=== PATIENT | male | born 1970 | race Caucasian/White ===

== ENCOUNTER 2016-11-03 10:36 | Emergency (ER) | payer SELFPAY ==
--- NOTE | 2016-11-03 14:24 | DIAGNOSTIC IMAGING REPORT ---
PROCEDURE: US SCROTUM/TESTICLE INDICATION: SCROTAL MASS TECHNIQUE: Veras scale and color Doppler sonographic images through the scrotum were obtained. COMPARISON: None. FINDINGS: Extending from the proximal scrotal skin into the peroneal body, there is an ill-defined heterogeneous, hypoechoic avascular fluid collection/phlegmonous mass measuring approximately 3.3 x 2.3 by about 5.9 cm. This begins immediately below the skin surface. There is significant left scrotal wall thickening. The right testicle measures 3.9 x 1.8 x 2.6 cm and the left measures 3.6 x 1.7 x 1.2 cm. Both testicles demonstrate homogeneous echotexture without solid mass, cyst, or numerous microcalcifications. Occasional right testicular microcalcifications. Color Doppler imaging demonstrates normal and symmetric arterial and venous testicular flow. No suspicious hyperemia. The epididymi are normal in size, echotexture, and vascularity. Very small bilateral hydrocele. IMPRESSION: 1. Normal testicles and epididymi. 2. Left scrotal cellulitis with extension into the peroneal body and probable phlegmon/abscess involving the peroneal body. CT will be performed to determine the full extent of cellulitis. 3. Discussed with emergency room provider.
--- NOTE | 2016-11-03 17:03 | DIAGNOSTIC IMAGING REPORT ---
PROCEDURE: CT PELVIS WITH CONTRAST INDICATION: PELVIC PAIN TECHNIQUE: 125 ml Isovue 300 IV contrast was administered without complication. Axial CT images through the pelvis were obtained with coronal and sagittal reformations created. COMPARISON: Ultrasound performed the same day. FINDINGS: There is mild inflammation and a focal tubular fluid collection measuring about 4.5 x 0.9 x 1.3 cm in the dorsal subcutaneous superficial soft tissues at the base of the scrotum just to the left of midline. Moderate fat stranding extends slightly cranially into the adjacent fat. There is at least 4 cm of fat between the abscess and pelvic floor musculature with the patient in position for the scan. No evidence of subcutaneous gas. Mild left scrotal sac subcutaneous edema. Testicles otherwise appear normal. Pelvic floor appears intact without induration/inflammation. Prostate gland, seminal vesicles, and distended urinary bladder appear normal. Pelvic small bowel loops are normal. The appendix was not visualized. Pelvic vessels are unremarkable. No free pelvic fluid. Osseous structures are intact with sacralization of left L5 transverse process. IMPRESSION: 1. Left scrotal cellulitis with small abscess. 2. Discussed with Dr. Cuadra in the emergency room.
--- NOTE | 2016-11-03 17:17 | ED ORDER SUMMARY ---
..... Patient: MADINA AMARO OrderSheet [facility] VisitID: [id number] [address] [place] [address] 46y, M Registration Date/Time: 11/03/2016 ORDER SHEET Weight: 86.1 kg (stated) Allergies: No Known Drug Allergy GENERAL ORDERS: US Scrotum/Testicular Urgent (11:20 11/03/2016 Pratik CHEEMA) (Ack 11:23 Juanjose) (12:47 SReitz R.N.) CT Abd/Pel w Cont (No) (pending) (perineal abscess. ) Urgent (13:11 11/03/2016 Pratik CHEEMA) (Ack 13:19 Juanjose) (14:46 MWinterer R.N.) CBC w Diff Urgent (13:12 11/03/2016 Pratik CHEEMA) (Ack 13:19 Juanjose) (13:33 MWinterer R.N.) BMP Urgent (13:12 11/03/2016 Pratik CHEEMA) (Ack 13:19 Juanjose) (13:33 MWinterer R.N.) CT Pelvis w Cont (13:47 11/03/2016 Juanjose verbal order read back to Pratik CHEEMA) (Ack 13:58 Juanjose) (14:46 MWinterer R.N.) Culture, Wound Deep (Groin) (swab) Urgent (17:06 11/03/2016 Pratik CHEEMA) (17:09 SReitz R.N.) Dress Wounds (17:11/03/2016 Pratik CHEEMA) (17:44 SReitz R.N.) MEDICATION ORDERS: IV FLUIDS: IV NS : initial bolus none -, then 250 mL/hr for 4h (NOW); Routine (13:10 11/03/2016 Pratik CHEEMA) (Ack 13:13 SRobershell R.N.) (13:34 MWinterer R.N.) Dilaudid IV 0.5 mg (NOW) (13:11/03/2016 Pratik CHEEMA) (Ack 13:13 Ziyad R.N.) (13:34 MWinterer R.N.) Zofran IV 4 mg (NOW) (13:10 11/03/2016 Pratik CHEEMA) (Ack 13:13 Ziyad Perez) (13:35 Heena Perez) Vancomycin IV 25 mg/kg (NOW) (16:46 11/03/2016 Pratik CHEEMA) (Ack 17:01 Rodney Perez) (17:12 Rodney Perez) ORDER SHEET NOTES: [Electronically signed by Lyla Bourgeois R.N. (19:52 11/03/2016)] [Electronically signed by Will Cuadra MD (20:53 11/04/2016)] [Electronically locked/signed by Lyla Bourgeois R.N. (19:52 11/03/2016)]
--- NOTE | 2016-11-03 17:17 | ED ORDER SUMMARY ---
..... Patient: MADINA AMARO OrderSheet [facility] VisitID: [id number] [address] [place] [address] 46y, M Registration Date/Time: 11/03/2016 ORDER SHEET Weight: 86.1 kg (stated) Allergies: No Known Drug Allergy GENERAL ORDERS: US Scrotum/Testicular Urgent (11:20 11/03/2016 Pratik CHEEMA) (Ack 11:23 Juanjose) (12:47 SReitz R.N.) CT Abd/Pel w Cont (No) (pending) (perineal abscess. ) Urgent (13:11 11/03/2016 Pratik CHEEMA) (Ack 13:19 Juanjose) (14:46 MWinterer R.N.) CBC w Diff Urgent (13:12 11/03/2016 Pratik CHEEMA) (Ack 13:19 Juanjose) (13:33 MWinterer R.N.) BMP Urgent (13:12 11/03/2016 Pratik CHEEMA) (Ack 13:19 Juanjose) (13:33 MWinterer R.N.) CT Pelvis w Cont (13:47 11/03/2016 Juanjose verbal order read back to Pratik CHEEMA) (Ack 13:58 Juanjose) (14:46 MWinterer R.N.) Culture, Wound Deep (Groin) (swab) Urgent (17:06 11/03/2016 Pratik CHEEMA) (17:09 SReitz R.N.) Dress Wounds (17:11/03/2016 Pratik CHEEMA) (17:44 SReitz R.N.) MEDICATION ORDERS: IV FLUIDS: IV NS : initial bolus none -, then 250 mL/hr for 4h (NOW); Routine (13:10 11/03/2016 Pratik CHEEMA) (Ack 13:13 SRobershell R.N.) (13:34 MWinterer R.N.) Dilaudid IV 0.5 mg (NOW) (13:11/03/2016 Pratik CHEEMA) (Ack 13:13 Ziyad R.N.) (13:34 MWinterer R.N.) Zofran IV 4 mg (NOW) (13:10 11/03/2016 Pratik CHEEMA) (Ack 13:13 Ziyad Perez) (13:35 Heena Perez) Vancomycin IV 25 mg/kg (NOW) (16:46 11/03/2016 Pratik CHEEMA) (Ack 17:01 Rodney Perez) (17:12 Rodney Perez) ORDER SHEET NOTES: [Electronically signed by Lyla Bourgeois R.N. (19:52 11/03/2016)] [Electronically signed by Will Cuadra MD (20:53 11/04/2016)] [Electronically locked/signed by Lyla Bourgeois R.N. (19:52 11/03/2016)]
--- NOTE | 2016-11-03 17:17 | ED CLINICAL REPORT ---
Clinical Report - Physicians/Mid Levels [facility] [address] [place] [address] 11/03/2016 10:38 Patient: MADINA AMARO Time Seen: 11:16 Nov 03 2016. Arrived- By private vehicle. Historian- patient. CPT: ER phys charges level 4 plus (#[id number]). HISTORY OF PRESENT ILLNESS Chief Complaint: LESION. This started about 5 days PATROL CONDUCTOR and is still present. It is described as painful. It has been located on the scrotum and perineum. No cause has been identified. (Started as a pimple.). Similar symptoms previously: None. Recent medical care: Not recently seen/assessed. REVIEW OF SYSTEMS No fever, chills, sore throat, cough or difficulty breathing. No chest pain, abdominal pain, nausea, diarrhea or joint pain. All systems otherwise negative, except as recorded above. PAST HISTORY Allergic Rhinitis. ADDITIONAL SURGERIES: Appendectomy. Medications: None. Allergies: No Known Drug Allergy. SOCIAL HISTORY Never smoker. No alcohol use or drug use. ADDITIONAL NOTES The nursing notes have been reviewed. PHYSICAL EXAM Vital Signs: 11/03/2016 10:44 BP: 141/90. HR: 102. RR: 18. O2 saturation: 100%. Temp: 98.8 F. Appearance: Alert. Patient in mild distress. Eyes: Conjunctivae and eyelids normal. Neck: Neck supple. CVS: Normal heart rate and rhythm. Heart sounds normal. No cardiac murmur. Respiratory: No respiratory distress. Breath sounds normal. Chest nontender. Abdomen: Nontender. Skin: Single medium abscess with fluctuance, pointing and drainage (perineal). Extremities: Extremities nontender. Neuro: Oriented X 3. No motor deficit. No sensory deficit. LABS, X-RAYS, AND EKG Abdominal CT: 1 by 4 cm cylindrical mass consistent with abscess. No penetration into the pelvis. Abdominal CT performed with IV contrast. The study was interpreted by the radiologist and discussed with the radiologist. Scrotal Sonogram: perineal abscess, central. Cannot see the extent as to how deep it goes. Study type: utilized duplex and color Doppler sonography. The exam was performed by a machine technician. The study was independently viewed by me, interpreted by the radiologist and discussed with the radiologist. Laboratory Tests: CBC w Diff: (SWATI: 11/03/2016 13:30) ( MsgRcvd 11/03/2016 13:52) Final results Test Result Flag Units (Reference) WHITE BLOOD COUNT 15.6 H K/uL (4.5-11.5) RED BLOOD COUNT 4.86 M/uL (4.50-5.90) HEMOGLOBIN 15.3 gm/dL (13.5-17.5) HEMATOCRIT 44.8 % (41.0-53.0) MEAN CELL VOLUME 92 fL (80-100) MEAN CORPUSCULAR HGB 31 pg (26-34) MEAN CORPUSCULAR HGB CONC 34 g/dL (31-37) RED CELL DISTRIBUTION WIDTH 12.9 % (11.6-14.8) PLATELET COUNT 409 H K/uL (150-400) NEUTROPHIL % 73.4 % (50-75) LYMPH % 16.7 L % (25-40) MONO % 7.2 % (3-14) EOSINOPHIL % 0.5 % (0-4) BASOPHIL % 2.2 H % (0-2) BMP: (SWATI: 11/03/2016 13:30) ( MsgRcvd 11/03/2016 14:08) Final results Test Result Flag Units (Reference) GLUCOSE 116 H mg/dL (70-110) BUN 12 mg/dL (7-18) CREATININE 0.9 mg/dL (0.6-1.3) Estimated GFR >60 mL/min Estimated GFR- >60 mL/min Note: Persistent reduction over 3 months in eGFR<60 mL/min/1.73 m2 defines CKD. Patients with eGFR values>=60 mL/min/1.73 m2 may also have CKD if evidence ofpersistent proteinuria. Additional information may be foundat www.kidney.org. SODIUM 143 mmol/L (136-145) POTASSIUM 3.9 mmol/L (3.5-5.1) CHLORIDE 107 mmol/L (98-107) CARBON DIOXIDE 26 mmol/L (21-32) CALCIUM 8.6 mg/dL (8.5-10.1) . PROGRESS AND PROCEDURES Incision & Drainage of Abscess: The abscess is located in the scrotum (perineal). The risks of the procedure, benefits and alternatives were explained. Consent was obtained. Anesthesia provided using 2% lidocaine. Skin cleansed with Betadine. Ultrasound utilized to confirm presence and determine location of abscess. The abscess was incised with a #11 surgical blade. A moderate amount of pus was drained. Cavity was irrigated with saline and packed with gauze. Sample obtained for cultures and gram stain. A dressing was applied. Estimated blood loss: 2 mL. Course of Care: US to evaluate how large and extensive the abscess is . US could not see how deep this lesion went so CT performed to make sure there was no pelvic extension. Zofran 4 mg Iv Dilaudid 0.5 mg IV IV NS Vancomycin 2g IV. Patient/family counseled. Disposition: Discharged. Condition: stable and improved. CLINICAL IMPRESSION Single deep abscess to the genitalia with incision and drainage (perineal). Left scrotal cellulitis. INSTRUCTIONS Protect wound and keep wound area clean. Leave dressing in place until seen in follow-up. Keep wounds dry. Do not work for four days until released. Warnings: Further evaluation is necessary. Prescription Medications: Hydrocodone/APAP 5mg/325mg: take 1 to 2 orally every 6 hours as needed for pain. Dispense fifteen (15). No refills. Bactrim DS 800 mg / 160 mg: take 1 tablet orally every 12 hours for 10 days. No refill. Keflex 500 mg: take 2 capsules orally every 12 hours for 10 days. No refill. Follow-up: Return to the emergency department Friday in two days for wound check. Understanding of the discharge instructions verbalized by patient and family. Discharge instructions reviewed with and understanding was verbalized by spouse. Follow-up with: [facility], , , [address], [place], [id number] Follow up in two days. Call for the next available appointment. Reason for referral: assess wound and packing. (Electronically signed by Will Cuadra MD 11/04/2016 20:53)
--- NOTE | 2016-11-03 17:17 | ED NURSING NOTES ---
Clinical Report - Nurses [facility] [address] [place] [address] 11/03/2016 10:38 Patient: MADINA AMARO TRIAGE Triage time 10:44. Acuity: LEVEL 4. Chief Complaint: SKIN LESION. Alert. No acute distress. SEPSIS SCREEN: Sepsis Screen. Negative (no infection suspected/documented). YOAN COMA SCORE: [place] Coma Scale: 15- eyes open spontaneously (4); best verbal response- oriented x 4 (5); best motor response- obeys commands (6). --10:48 Daysi Jennings R.N. 10:44 11/03/16. BP: 141/90. HR: 102. RR: 18. O2 saturation: 100%. Temp: 98.8 F. Pain level now 03/03. --10:48 Daysi Jennings R.N. Weight: 86.1 kg stated. Height/Length: 66 inches Per Patient. BMI: 30.7. --10:45 Daysi Jennings R.N. Medications None. --10:46 Daysi Jennings R.N. Allergies No Known Drug Allergy. --10:46 Daysi Jennings R.N. History Arrived by private vehicle. Historian: patient. Accompanied by spouse. Primary physician (none). Reported as (groin). Onset. (5 days ago). Treatment RESISTOR TESTER: None. PAST MEDICAL HX: Immunizations: (not up to date). SOCIAL HX: Light tobacco smoker (cigarette)- less than 1/2 a pack per day. Occasional alcohol use. (weekends). No drug use. No infectious disease exposure. ABUSE ASSESSMENT: Abuse assessment: The patient was asked "Do you feel safe in your home?" and "Has anyone hurt you or threatened to hurt you?". No report of abuse. SELF HARM ASSESSMENT: A self harm assessment was performed. The patient answered "no" to the question "Do you have thoughts of harming or killing yourself?" and "Have you recently had thoughts about harming or killing others?". NUTRITIONAL RISK ASSESSMENT: The nutritional risk assessment revealed no deficiencies. FUNCTIONAL ASSESSMENT: Functional assessment: no impairments noted. LEARNING NEEDS ASSESSMENT: The learning needs assessment revealed no barriers. --10:48 Daysi Jennings R.N. PROBLEMS: Allergic Rhinitis. --10:46 Daysi Jennings R.N. ADDITIONAL SURGERIES: Appendectomy. --10:46 Daysi Jennings R.N. Interventions ID band on patient. Ambulatory. --10:48 Daysi Jennings R.N. PHYSICAL ASSESSMENT Ambulatory to room. GENERAL / NEURO / PSYCH: Alert. The patient does not appear to be in acute distress. --10:47 Daysi Jennings R.N. NURSING PROGRESS NOTES Patient gowned. Head of bed elevated. Two patient identifiers checked. Call light placed in reach. Side rails up x 2. Bed placed in lowest position. Brakes of bed on. Patient ready for evaluation- chart flagged. --10:47 Daysi Jennings R.N. ( US at the bedside for exam.). --12:29 Daysi Jennings R.N. 12:45 11/03/16. BP: 135/76. HR: 90. RR: 15. O2 saturation: 98%. --12:45 Daysi Jennings R.N. 13:23 11/03/2016 Site #1 started via IV in the right antecubital space with an 20g angiocath, with aseptic technique and good blood return; one attempt. Blood drawn: rainbow set. Labeled in the presence of the patient and sent to the lab. --13:33 Tarah Brunson R.N. 13:29 11/03/2016 Started bag #1 1000 mL IV Fluids IV NS (Saline); at 999 mL/hr over 1 hour(s) via site #1 via IV pump. Allergies verified and confirmed 5 rights. IV patency established. IV site checked: no pain, redness, or swelling. IV flushed thoroughly pre- and post-medication administration. --13:34 Tarah Brunson R.N. 13:29 11/03/2016 Dilaudid (HYDROmorphone HCl PF) IVP 0.5 mg given over 1 minute(s) via site #1. Allergies verified, confirmed 5 rights and sedative warning given to the patient. IV patency established. IV site checked: no pain, redness, or swelling. IV flushed thoroughly pre- and post-medication administration. IVP given by RN. --13:34 Tarah Brunson R.N. 13:30 11/03/2016 Zofran (Ondansetron HCl) IVP 4 mg given over 1 minute(s) via site #1. Allergies verified and confirmed 5 rights. IV patency established. IV site checked: no pain, redness, or swelling. IV flushed thoroughly pre- and post-medication administration. IVP given by RN. --13:35 Tarah Brunson R.N. 14:00 11/03/2016 Dilaudid IVP Response: no adverse reaction pain is improving. --14:07 Daysi Jennings R.N. 14:06 11/03/16. BP: 129/82. HR: 85. RR: 15. O2 saturation: 97%. Pain level now 2/10. --14:08 Daysi Jennings R.N. Patient informed about reason for wait. --14:08 Daysi Jennings R.N. 15:59 11/03/16. BP: 122/83. HR: 83. RR: 15. O2 saturation: 96%. --16:00 Daysi Jennings R.N. 17:12 11/03/2016 Started 1 gm of Vancomycin IVPB in bag #1 200 mL; at 200 mL/hr over 1 hour(s) via site #1 via IV pump. Allergies verified and confirmed 5 rights. IV patency established. IV site checked: no pain, redness, or swelling. IV flushed thoroughly pre- and post-medication administration. --17:12 Daysi Jennings R.N. 17:00. I & D: Incision and Drainage of abscess performed by ED physician. Assisted by one nurse. Preparation: Incision and Drainage tray set up. Post-procedure: he was stable. Total time of assist / procedure: 15 minutes. --17:12 Daysi Jennings R.N. <<STRICKEN ENTRY-- 18:20 11/03/2016 Vancomycin IVPB Discontinued: bag #1 infused. Total amount infused: 200 mL. --18:22 Daysi Jennings R.N. --END STRIKE>> Other. --18:22 Daysi Jennings R.N. 18:20 11/03/2016 Vancomycin IVPB Discontinued: bag #1 infused. Total amount infused: 200 mL. IV patency established. IV site checked: no pain, redness, or swelling. IV flushed thoroughly. --18:22 Daysi Jennings R.N. 18:22 11/03/2016 Started 1 gm of Vancomycin IVPB in bag #1 200 mL; at 200 mL/hr over 1 hour(s) via site #1 via IV pump. Allergies verified and confirmed 5 rights. IV patency established. IV site checked: no pain, redness, or swelling. IV flushed thoroughly pre- and post-medication administration. --18: Daysi Jennings R.N. 18:23 11/03/16. BP: 121/76. HR: 90. RR: 16. O2 saturation: 97%. --18:24 Daysi Jennings R.N. 19:05 11/03/16. Care transferred and report received. --19:05 Lyla Bourgeois R.N. DISPOSITION / DISCHARGE 19:29 11/03/16. Condition at departure: improved. No learning barriers present. Discharge instructions provided and reviewed with the patient and spouse. Reviewed medication(s) information. Prescription(s) given to the patient. Reviewed referral to family practice for followup. Verbalized understanding. Written instructions provided. The patient was discharged home and accompanied by spouse. He left the Emergency Department ambulatory and via private vehicle. Spouse driving. --19:29 Lyla Bourgeois R.N. 19:28 11/03/16. BP: 120/74. HR: 85. RR: 18. O2 saturation: 99%. --19:29 Lyla Bourgeois R.N. Locked/Released at 11/03/2016 19:52 by Lyla Bourgeois R.N.
--- NOTE | 2016-11-03 17:17 | ED CLINICAL REPORT ---
Clinical Report - Physicians/Mid Levels [facility] [address] [place] [address] 11/03/2016 10:38 Patient: MADINA AMARO Time Seen: 11:16 Nov 03 2016. Arrived- By private vehicle. Historian- patient. CPT: ER phys charges level 4 plus (#[id number]). HISTORY OF PRESENT ILLNESS Chief Complaint: LESION. This started about 5 days CLINICAL INFORMATICS SPEC and is still present. It is described as painful. It has been located on the scrotum and perineum. No cause has been identified. (Started as a pimple.). Similar symptoms previously: None. Recent medical care: Not recently seen/assessed. REVIEW OF SYSTEMS No fever, chills, sore throat, cough or difficulty breathing. No chest pain, abdominal pain, nausea, diarrhea or joint pain. All systems otherwise negative, except as recorded above. PAST HISTORY Allergic Rhinitis. ADDITIONAL SURGERIES: Appendectomy. Medications: None. Allergies: No Known Drug Allergy. SOCIAL HISTORY Never smoker. No alcohol use or drug use. ADDITIONAL NOTES The nursing notes have been reviewed. PHYSICAL EXAM Vital Signs: 11/03/2016 10:44 BP: 141/90. HR: 102. RR: 18. O2 saturation: 100%. Temp: 98.8 F. Appearance: Alert. Patient in mild distress. Eyes: Conjunctivae and eyelids normal. Neck: Neck supple. CVS: Normal heart rate and rhythm. Heart sounds normal. No cardiac murmur. Respiratory: No respiratory distress. Breath sounds normal. Chest nontender. Abdomen: Nontender. Skin: Single medium abscess with fluctuance, pointing and drainage (perineal). Extremities: Extremities nontender. Neuro: Oriented X 3. No motor deficit. No sensory deficit. LABS, X-RAYS, AND EKG Abdominal CT: 1 by 4 cm cylindrical mass consistent with abscess. No penetration into the pelvis. Abdominal CT performed with IV contrast. The study was interpreted by the radiologist and discussed with the radiologist. Scrotal Sonogram: perineal abscess, central. Cannot see the extent as to how deep it goes. Study type: utilized duplex and color Doppler sonography. The exam was performed by a maintenance shop technician. The study was independently viewed by me, interpreted by the radiologist and discussed with the radiologist. Laboratory Tests: CBC w Diff: (SWATI: 11/03/2016 13:30) ( MsgRcvd 11/03/2016 13:52) Final results Test Result Flag Units (Reference) WHITE BLOOD COUNT 15.6 H K/uL (4.5-11.5) RED BLOOD COUNT 4.86 M/uL (4.50-5.90) HEMOGLOBIN 15.3 gm/dL (13.5-17.5) HEMATOCRIT 44.8 % (41.0-53.0) MEAN CELL VOLUME 92 fL (80-100) MEAN CORPUSCULAR HGB 31 pg (26-34) MEAN CORPUSCULAR HGB CONC 34 g/dL (31-37) RED CELL DISTRIBUTION WIDTH 12.9 % (11.6-14.8) PLATELET COUNT 409 H K/uL (150-400) NEUTROPHIL % 73.4 % (50-75) LYMPH % 16.7 L % (25-40) MONO % 7.2 % (3-14) EOSINOPHIL % 0.5 % (0-4) BASOPHIL % 2.2 H % (0-2) BMP: (SWATI: 11/03/2016 13:30) ( MsgRcvd 11/03/2016 14:08) Final results Test Result Flag Units (Reference) GLUCOSE 116 H mg/dL (70-110) BUN 12 mg/dL (7-18) CREATININE 0.9 mg/dL (0.6-1.3) Estimated GFR >60 mL/min Estimated GFR- >60 mL/min Note: Persistent reduction over 3 months in eGFR<60 mL/min/1.73 m2 defines CKD. Patients with eGFR values>=60 mL/min/1.73 m2 may also have CKD if evidence ofpersistent proteinuria. Additional information may be foundat [email or web address].org. SODIUM 143 mmol/L (136-145) POTASSIUM 3.9 mmol/L (3.5-5.1) CHLORIDE 107 mmol/L (98-107) CARBON DIOXIDE 26 mmol/L (21-32) CALCIUM 8.6 mg/dL (8.5-10.1) . PROGRESS AND PROCEDURES Incision & Drainage of Abscess: The abscess is located in the scrotum (perineal). The risks of the procedure, benefits and alternatives were explained. Consent was obtained. Anesthesia provided using 2% lidocaine. Skin cleansed with Betadine. Ultrasound utilized to confirm presence and determine location of abscess. The abscess was incised with a #11 surgical blade. A moderate amount of pus was drained. Cavity was irrigated with saline and packed with gauze. Sample obtained for cultures and gram stain. A dressing was applied. Estimated blood loss: 2 mL. Course of Care: US to evaluate how large and extensive the abscess is . US could not see how deep this lesion went so CT performed to make sure there was no pelvic extension. Zofran 4 mg Iv Dilaudid 0.5 mg IV IV NS Vancomycin 2g IV. Patient/family counseled. Disposition: Discharged. Condition: stable and improved. CLINICAL IMPRESSION Single deep abscess to the genitalia with incision and drainage (perineal). Left scrotal cellulitis. INSTRUCTIONS Protect wound and keep wound area clean. Leave dressing in place until seen in follow-up. Keep wounds dry. Do not work for four days until released. Warnings: Further evaluation is necessary. Prescription Medications: Hydrocodone/APAP 5mg/325mg: take 1 to 2 orally every 6 hours as needed for pain. Dispense fifteen (15). No refills. Bactrim DS 800 mg / 160 mg: take 1 tablet orally every 12 hours for 10 days. No refill. Keflex 500 mg: take 2 capsules orally every 12 hours for 10 days. No refill. Follow-up: Return to the emergency department Friday in two days for wound check. Understanding of the discharge instructions verbalized by patient and family. Discharge instructions reviewed with and understanding was verbalized by spouse. Follow-up with: [facility], , , [address], [place], [id number] Follow up in two days. Call for the next available appointment. Reason for referral: assess wound and packing. (Electronically signed by Will Cuadra MD 11/04/2016 20:53)
--- NOTE | 2016-11-04 20:53 | ED MAR SUMMARY ---
..... Medication Administration Record [facility] [address] [place] [address] Patient: MADINA AMARO Visit ID: [id number] 46y, M Weight: 86.1 kg Height/Length: 66 in BMI: 30.7 ALLERGIES: No Known Drug Allergy Start 13:11/03/2016 Tarah Brunson R.N. Medication Administered: IV NS (SALINE), Dose: IV Fluids over 1 hour(s), Rate: 999 mL/hr, Dispensed: 1000 mL bag, Site: #1 right AC. Medication Ordered: IV NS : initial bolus none -, then 250 mL/hr for 4h (NOW); Routine. Given 13:11/03/2016 Tarah Brunson R.N. Medication Administered: DILAUDID [IVP] (HYDROMORPHONE HCL PF), Dose: 0.5 mg IVP over 1 minute(s), Site: #1 right AC. Medication Ordered: Dilaudid IV 0.5 mg (NOW). Given 13:11/03/2016 Tarah Brunson R.N. Medication Administered: ZOFRAN [IVP] (ONDANSETRON HCL), Dose: 4 mg IVP over 1 minute(s), Site: #1 right AC. Medication Ordered: Zofran IV 4 mg (NOW). Start 17:12 11/03/2016 Daysi Jennings R.N., Stop 18:20 11/03/2016 Daysi Jennings R.N. Medication Administered: VANCOMYCIN [IVPB], Dose: 1 gm IVPB over 1 hour(s), Rate: 200 mL/hr, Dispensed: 200 mL bag, Site: #1 right AC. Medication Ordered: Vancomycin IV 25 mg/kg (NOW). Start 18:22 11/03/2016 Daysi Jennings R.N. Medication Administered: VANCOMYCIN [IVPB], Dose: 1 gm IVPB over 1 hour(s), Rate: 200 mL/hr, Dispensed: 200 mL bag, Site: #1 right AC. Medication Ordered: Vancomycin IV 25 mg/kg (NOW).
--- NOTE | 2016-11-04 20:53 | ED DISCHARGE INSTRUCTIONS ---
Patient: MADINA AMARO General Instructions [facility] VisitID: [id number] [address] [place] [address] 46y, M Registration Date/Time: 11/03/2016 Single deep abscess to the genitalia with incision and drainage (perineal). Left scrotal cellulitis. INSTRUCTIONS Protect wound and keep wound area clean. Leave dressing in place until seen in follow-up. Keep wounds dry. Do not work for four days until released. Warnings: Further evaluation is necessary. Prescription Medications: Hydrocodone/APAP 5mg/325mg: take 1 to 2 orally every 6 hours as needed for pain. Dispense fifteen (15). No refills. Bactrim DS 800 mg / 160 mg: take 1 tablet orally every 12 hours for 10 days. No refill. Keflex 500 mg: take 2 capsules orally every 12 hours for 10 days. No refill. Follow-up: Return to the emergency department Friday in two days for wound check. Understanding of the discharge instructions verbalized by patient and family. Discharge instructions reviewed with and understanding was verbalized by spouse. Follow-up with: [facility], , , [address], , [place], [id number] Follow up in two days. Call for the next available appointment. Reason for referral: assess wound and packing. ADDITIONAL INFORMATION Abscess [Incision & Drainage] An abscess (sometimes called a boil) occurs when bacteria get trapped under the skin and begin to grow. Pus forms inside the abscess as the body responds to the bacteria. An abscess can occur with an insect bite, ingrown hair, blocked oil gland, pimple, cyst, or puncture wound. Treatment of your abscess has required an incision to drain the pus. If the abscess pocket was large, a gauze packing may have been inserted. This will need to be removed and possibly replaced on your next visit. Antibiotics are not required in the treatment of a simple abscess, unless the infection is spreading into the skin around the wound (known as cellulitis). Healing of the wound will take about one to two weeks depending on the size of the abscess. Healthy tissue will grow from the bottom and sides of the opening until it seals over. Home Care: The wound may drain for the first two days. Cover the wound with a clean dry dressing. If the dressing becomes soaked with blood or pus, change it. If a gauze packing was placed inside the abscess cavity, you may be advised to remove it yourself. You may do this in the shower. Once the packing is removed, you should wash the area in the shower or bath 3 to 4 times a day, until the skin opening has closed. If you were prescribed antibiotics, take them as directed until they are all gone. You may use acetaminophen (Tylenol) or ibuprofen (Motrin, Advil) to control pain, unless another pain medicine was prescribed. [ NOTE: If you have liver disease or ever had a stomach ulcer, talk with your doctor before using these medicines.] Follow Up with your doctor as advised by our staff. If a gauze packing was inserted in your wound, it should be removed in 1-2 days. Check your wound every day for the signs of worsening infection listed below. Get Prompt Medical Attention if any of the following occur: Increasing redness or swelling Red streaks in the skin leading away from the wound Increasing local pain or swelling Continued pus draining from the wound two days after treatment Fever of 100.4F (38C) or higher, or as directed by your healthcare provider Cellulitis You have an infection of the skin known as cellulitis. This usually starts with a scrape, cut, insect bite, blister or other opening in the skin which becomes infected. This is a serious condition. It must be watched closely to be sure the infection is not spreading. With antibiotic treatment, the size of the red area will gradually shrink in size until the skin returns to normal. This will take 7-10 days. The red area should never increase in size once the antibiotic medicine has been started. Occasionally, an infection will be resistant to one antibiotic and another one will have to be used. Home Care: 1) Limit the use of the affected part, since excess movement can cause the infection to spread. 2) If the infection is on your leg, walk as little as possible during the first few days of the treatment. Keep your leg elevated while sitting. This will reduce swelling. 3) Take all of the antibiotic medicine exactly as directed until it is gone. Be careful not to miss any doses, especially during the first seven days. Follow Up with your doctor or this facility as directed. Check the infected area daily for the warning signs listed below. Get Prompt Medical Attention if any of the following occur: -- Spreading area of redness -- Increasing swelling or pain -- Appearance of pus or drainage -- Fever over 100.4 F (38.0 C) oral, or over 101.4 F (38.6 C) rectal, after two days on antibiotics Sulfamethoxazole, Trimethoprim Oral tablet What is this medicine? SULFAMETHOXAZOLE; TRIMETHOPRIM or SMX-TMP (suhl fuh meth OK heidy zohl; trye METH oh prim) is a combination of a sulfonamide antibiotic and a second antibiotic, trimethoprim. It is used to treat or prevent certain kinds of bacterial infections. It will not work for colds, flu, or other viral infections. How should I use this medicine? Take this medicine by mouth with a full glass of water. Follow the directions on the prescription label. Take your medicine at regular intervals. Do not take it more often than directed. Do not skip doses or stop your medicine early. Talk to your knitting machine fixer regarding the use of this medicine in children. Special care may be needed. This medicine has been used in children as young as 2 months of age. What side effects may I notice from receiving this medicine? Side effects that you should report to your doctor or health healthcare technician as soon as possible: allergic reactions like skin rash or hives, swelling of the face, lips, or tongue breathing problems fever or chills, sore throat irregular heartbeat, chest pain joint or muscle pain pain or difficulty passing urine red pinpoint spots on skin redness, blistering, peeling or loosening of the skin, including inside the mouth unusual bleeding or bruising unusually weak or tired yellowing of the eyes or skin Side effects that usually do not require medical attention (report to your doctor or health healthcare technician if they continue or are bothersome): diarrhea dizziness headache loss of appetite nausea, vomiting nervousness What may interact with this medicine? Do not take this medicine with any of the following medications: aminobenzoate potassium dofetilide metronidazole This medicine may also interact with the following medications: SOCO inhibitors like benazepril, enalapril, lisinopril, and ramipril cyclosporine digoxin diuretics indomethacin medicines for diabetes methenamine methotrexate phenytoin potassium supplements pyrimethamine sulfinpyrazone tricyclic antidepressants warfarin What if I miss a dose? If you miss a dose, take it as soon as you can. If it is almost time for your next dose, take only that dose. Do not take double or extra doses. Where should I keep my medicine? Keep out of the reach of children. Store at room temperature between 20 to 25 degrees C (68 to 77 degrees F). Protect from light. Throw away any unused medicine after the expiration date. What should I tell my health care provider before I take this medicine? They need to know if you have any of these conditions: anemia asthma being treated with anticonvulsants if you frequently drink alcohol containing drinks kidney disease liver disease low level of folic acid or [id number] dehydrogenase poor nutrition or malabsorption porphyria severe allergies thyroid disorder an unusual or allergic reaction to sulfamethoxazole, trimethoprim, sulfa drugs, other medicines, foods, dyes, or preservatives or trying to get breast-feeding What should I watch for while using this medicine? Tell your doctor or health healthcare technician if your symptoms do not improve. Drink several glasses of water a day to reduce the risk of kidney problems. Do not treat diarrhea with over the counter products. Contact your doctor if you have diarrhea that lasts more than 2 days or if it is severe and watery. This medicine can make you more sensitive to the sun. Keep out of the sun. If you cannot avoid being in the sun, wear protective clothing and use a sunscreen. Do not use sun lamps or tanning beds/booths. Cephalexin Monohydrate Oral tablet What is this medicine? CEPHALEXIN (sef a WILDER in) is a cephalosporin antibiotic. It is used to treat certain kinds of bacterial infections It will not work for colds, flu, or other viral infections. How should I use this medicine? Take this medicine by mouth with a full glass of water. Follow the directions on the prescription label. This medicine can be taken with or without food. Take your medicine at regular intervals. Do not take your medicine more often than directed. Take all of your medicine as directed even if you think you are better. Do not skip doses or stop your medicine early. Talk to your knitting machine fixer regarding the use of this medicine in children. While this drug may be prescribed for selected conditions, precautions do apply. What side effects may I notice from receiving this medicine? Side effects that you should report to your doctor or health healthcare technician as soon as possible: allergic reactions like skin rash, itching or hives, swelling of the face, lips, or tongue breathing problems pain or trouble passing urine redness, blistering, peeling or loosening of the skin, including inside the mouth severe or watery diarrhea unusually weak or tired yellowing of the eyes, skin Side effects that usually do not require medical attention (report to your doctor or health healthcare technician if they continue or are bothersome): gas or heartburn genital or anal irritation headache joint or muscle pain nausea, vomiting What may interact with this medicine? probenecid some other antibiotics What if I miss a dose? If you miss a dose, take it as soon as you can. If it is almost time for your next dose, take only that dose. Do not take double or extra doses. There should be at least 4 to 6 hours between doses. Where should I keep my medicine? Keep out of the reach of children. Store at room temperature between 59 and 86 degrees F (15 and 30 degrees C). Throw away any unused medicine after the expiration date. What should I tell my health care provider before I take this medicine? They need to know if you have any of these conditions: kidney disease stomach or intestine problems, especially colitis an unusual or allergic reaction to cephalexin, other cephalosporins, penicillins, other antibiotics, medicines, foods, dyes or preservatives or trying to get breast-feeding What should I watch for while using this medicine? Tell your doctor or health healthcare technician if your symptoms do not begin to improve in a few days. Do not treat diarrhea with over the counter products. Contact your doctor if you have diarrhea that lasts more than 2 days or if it is severe and watery. If you have diabetes, you may get a false-positive result for sugar in your urine. Check with your doctor or health healthcare technician. You have been given the following additional information: Abscess, Incision And Drainage Cellulitis Sulfamethoxazole, Trimethoprim Oral tablet Cephalexin Monohydrate Oral tablet Do not work for four days until released. (Electronically signed by Will Cuadra MD 11/04/2016 20:53)
--- NOTE | 2016-11-04 20:53 | ED MAR SUMMARY ---
..... Medication Administration Record [facility] [address] [place] [address] Patient: MADINA AMARO Visit ID: [id number] 46y, M Weight: 86.1 kg Height/Length: 66 in BMI: 30.7 ALLERGIES: No Known Drug Allergy Start 13:11/03/2016 Tarah Brunson R.N. Medication Administered: IV NS (SALINE), Dose: IV Fluids over 1 hour(s), Rate: 999 mL/hr, Dispensed: 1000 mL bag, Site: #1 right AC. Medication Ordered: IV NS : initial bolus none -, then 250 mL/hr for 4h (NOW); Routine. Given 13:11/03/2016 Tarah Brunson R.N. Medication Administered: DILAUDID [IVP] (HYDROMORPHONE HCL PF), Dose: 0.5 mg IVP over 1 minute(s), Site: #1 right AC. Medication Ordered: Dilaudid IV 0.5 mg (NOW). Given 13:11/03/2016 Tarah Brunson R.N. Medication Administered: ZOFRAN [IVP] (ONDANSETRON HCL), Dose: 4 mg IVP over 1 minute(s), Site: #1 right AC. Medication Ordered: Zofran IV 4 mg (NOW). Start 17:12 11/03/2016 Daysi Jennings R.N., Stop 18:20 11/03/2016 Daysi Jennings R.N. Medication Administered: VANCOMYCIN [IVPB], Dose: 1 gm IVPB over 1 hour(s), Rate: 200 mL/hr, Dispensed: 200 mL bag, Site: #1 right AC. Medication Ordered: Vancomycin IV 25 mg/kg (NOW). Start 18:22 11/03/2016 Daysi Jennings R.N. Medication Administered: VANCOMYCIN [IVPB], Dose: 1 gm IVPB over 1 hour(s), Rate: 200 mL/hr, Dispensed: 200 mL bag, Site: #1 right AC. Medication Ordered: Vancomycin IV 25 mg/kg (NOW).
--- NOTE | 2016-11-04 20:53 | ED MED RECONCILIATION SUMMARY ---
Patient: MADINA AMARO Medication Reconciliation Report [facility] VisitID: [id number] [address] [place] [address] 46y, M Registration Date/Time: 11/03/2016 Weight: 86.1 kg Height/Length: 66 in. BMI: 30.7 ALLERGIES: No Known Drug Allergy The patient's Home Medications are listed below: NONE. The source(s) of the original Home Medication information: Not obtained. The following Medications were given to the patient in the Emergency Department: IV NS IV Fluids bolus 0, then 999 mL/hr, administered: 11/03/2016 1:29:00 PM Dilaudid [IVP] IVP 0.5 mg, administered: 11/03/2016 1:29:00 PM Zofran [IVP] IVP 4 mg, administered: 11/03/2016 1:30:00 PM Vancomycin [IVPB] IVPB bolus 0, then 1 gm 200 mL/hr, administered: 11/03/2016 5:12:00 PM Vancomycin [IVPB] IVPB bolus 0, then 1 gm 200 mL/hr, administered: 11/03/2016 6:22:00 PM The following Medications were prescribed to the patient: Hydrocodone/APAP 5mg/325mg: take 1 to 2 orally every 6 hours as needed for pain. Dispense fifteen (15). No refills. -- Will Cuadra MD Bactrim DS 800 mg / 160 mg: take 1 tablet orally every 12 hours for 10 days. No refill. -- Will Cuadra MD Keflex 500 mg: take 2 capsules orally every 12 hours for 10 days. No refill. -- Will Cuadra MD
--- NOTE | 2016-11-04 20:53 | ED MED RECONCILIATION SUMMARY ---
Patient: MADINA AMARO Medication Reconciliation Report [facility] VisitID: [id number] [address] [place] [address] 46y, M Registration Date/Time: 11/03/2016 Weight: 86.1 kg Height/Length: 66 in. BMI: 30.7 ALLERGIES: No Known Drug Allergy The patient's Home Medications are listed below: NONE. The source(s) of the original Home Medication information: Not obtained. The following Medications were given to the patient in the Emergency Department: IV NS IV Fluids bolus 0, then 999 mL/hr, administered: 11/03/2016 1:29:00 PM Dilaudid [IVP] IVP 0.5 mg, administered: 11/03/2016 1:29:00 PM Zofran [IVP] IVP 4 mg, administered: 11/03/2016 1:30:00 PM Vancomycin [IVPB] IVPB bolus 0, then 1 gm 200 mL/hr, administered: 11/03/2016 5:12:00 PM Vancomycin [IVPB] IVPB bolus 0, then 1 gm 200 mL/hr, administered: 11/03/2016 6:22:00 PM The following Medications were prescribed to the patient: Hydrocodone/APAP 5mg/325mg: take 1 to 2 orally every 6 hours as needed for pain. Dispense fifteen (15). No refills. -- Will Cuadra MD Bactrim DS 800 mg / 160 mg: take 1 tablet orally every 12 hours for 10 days. No refill. -- Will Cuadra MD Keflex 500 mg: take 2 capsules orally every 12 hours for 10 days. No refill. -- Will Cuadra MD
--- NOTE | 2016-11-04 20:53 | ED DISCHARGE INSTRUCTIONS ---
Patient: MADINA AMARO General Instructions [facility] VisitID: [id number] [address] [place] [address] 46y, M Registration Date/Time: 11/03/2016 Single deep abscess to the genitalia with incision and drainage (perineal). Left scrotal cellulitis. INSTRUCTIONS Protect wound and keep wound area clean. Leave dressing in place until seen in follow-up. Keep wounds dry. Do not work for four days until released. Warnings: Further evaluation is necessary. Prescription Medications: Hydrocodone/APAP 5mg/325mg: take 1 to 2 orally every 6 hours as needed for pain. Dispense fifteen (15). No refills. Bactrim DS 800 mg / 160 mg: take 1 tablet orally every 12 hours for 10 days. No refill. Keflex 500 mg: take 2 capsules orally every 12 hours for 10 days. No refill. Follow-up: Return to the emergency department Friday in two days for wound check. Understanding of the discharge instructions verbalized by patient and family. Discharge instructions reviewed with and understanding was verbalized by spouse. Follow-up with: [facility], , , [address], , [place], [id number] Follow up in two days. Call for the next available appointment. Reason for referral: assess wound and packing. ADDITIONAL INFORMATION Abscess [Incision & Drainage] An abscess (sometimes called a boil) occurs when bacteria get trapped under the skin and begin to grow. Pus forms inside the abscess as the body responds to the bacteria. An abscess can occur with an insect bite, ingrown hair, blocked oil gland, pimple, cyst, or puncture wound. Treatment of your abscess has required an incision to drain the pus. If the abscess pocket was large, a gauze packing may have been inserted. This will need to be removed and possibly replaced on your next visit. Antibiotics are not required in the treatment of a simple abscess, unless the infection is spreading into the skin around the wound (known as cellulitis). Healing of the wound will take about one to two weeks depending on the size of the abscess. Healthy tissue will grow from the bottom and sides of the opening until it seals over. Home Care: The wound may drain for the first two days. Cover the wound with a clean dry dressing. If the dressing becomes soaked with blood or pus, change it. If a gauze packing was placed inside the abscess cavity, you may be advised to remove it yourself. You may do this in the shower. Once the packing is removed, you should wash the area in the shower or bath 3 to 4 times a day, until the skin opening has closed. If you were prescribed antibiotics, take them as directed until they are all gone. You may use acetaminophen (Tylenol) or ibuprofen (Motrin, Advil) to control pain, unless another pain medicine was prescribed. [ NOTE: If you have liver disease or ever had a stomach ulcer, talk with your doctor before using these medicines.] Follow Up with your doctor as advised by our staff. If a gauze packing was inserted in your wound, it should be removed in 1-2 days. Check your wound every day for the signs of worsening infection listed below. Get Prompt Medical Attention if any of the following occur: Increasing redness or swelling Red streaks in the skin leading away from the wound Increasing local pain or swelling Continued pus draining from the wound two days after treatment Fever of 100.4F (38C) or higher, or as directed by your healthcare provider Cellulitis You have an infection of the skin known as cellulitis. This usually starts with a scrape, cut, insect bite, blister or other opening in the skin which becomes infected. This is a serious condition. It must be watched closely to be sure the infection is not spreading. With antibiotic treatment, the size of the red area will gradually shrink in size until the skin returns to normal. This will take 7-10 days. The red area should never increase in size once the antibiotic medicine has been started. Occasionally, an infection will be resistant to one antibiotic and another one will have to be used. Home Care: 1) Limit the use of the affected part, since excess movement can cause the infection to spread. 2) If the infection is on your leg, walk as little as possible during the first few days of the treatment. Keep your leg elevated while sitting. This will reduce swelling. 3) Take all of the antibiotic medicine exactly as directed until it is gone. Be careful not to miss any doses, especially during the first seven days. Follow Up with your doctor or this facility as directed. Check the infected area daily for the warning signs listed below. Get Prompt Medical Attention if any of the following occur: -- Spreading area of redness -- Increasing swelling or pain -- Appearance of pus or drainage -- Fever over 100.4 F (38.0 C) oral, or over 101.4 F (38.6 C) rectal, after two days on antibiotics Sulfamethoxazole, Trimethoprim Oral tablet What is this medicine? SULFAMETHOXAZOLE; TRIMETHOPRIM or SMX-TMP (suhl fuh meth OK heidy zohl; trye METH oh prim) is a combination of a sulfonamide antibiotic and a second antibiotic, trimethoprim. It is used to treat or prevent certain kinds of bacterial infections. It will not work for colds, flu, or other viral infections. How should I use this medicine? Take this medicine by mouth with a full glass of water. Follow the directions on the prescription label. Take your medicine at regular intervals. Do not take it more often than directed. Do not skip doses or stop your medicine early. Talk to your marketing manager regarding the use of this medicine in children. Special care may be needed. This medicine has been used in children as young as 2 months of age. What side effects may I notice from receiving this medicine? Side effects that you should report to your doctor or health patient care secretary as soon as possible: allergic reactions like skin rash or hives, swelling of the face, lips, or tongue breathing problems fever or chills, sore throat irregular heartbeat, chest pain joint or muscle pain pain or difficulty passing urine red pinpoint spots on skin redness, blistering, peeling or loosening of the skin, including inside the mouth unusual bleeding or bruising unusually weak or tired yellowing of the eyes or skin Side effects that usually do not require medical attention (report to your doctor or health patient care secretary if they continue or are bothersome): diarrhea dizziness headache loss of appetite nausea, vomiting nervousness What may interact with this medicine? Do not take this medicine with any of the following medications: aminobenzoate potassium dofetilide metronidazole This medicine may also interact with the following medications: SOCO inhibitors like benazepril, enalapril, lisinopril, and ramipril cyclosporine digoxin diuretics indomethacin medicines for diabetes methenamine methotrexate phenytoin potassium supplements pyrimethamine sulfinpyrazone tricyclic antidepressants warfarin What if I miss a dose? If you miss a dose, take it as soon as you can. If it is almost time for your next dose, take only that dose. Do not take double or extra doses. Where should I keep my medicine? Keep out of the reach of children. Store at room temperature between 20 to 25 degrees C (68 to 77 degrees F). Protect from light. Throw away any unused medicine after the expiration date. What should I tell my health care provider before I take this medicine? They need to know if you have any of these conditions: anemia asthma being treated with anticonvulsants if you frequently drink alcohol containing drinks kidney disease liver disease low level of folic acid or lsdjnsb-[id number]-[id number] dehydrogenase poor nutrition or malabsorption porphyria severe allergies thyroid disorder an unusual or allergic reaction to sulfamethoxazole, trimethoprim, sulfa drugs, other medicines, foods, dyes, or preservatives or trying to get breast-feeding What should I watch for while using this medicine? Tell your doctor or health patient care secretary if your symptoms do not improve. Drink several glasses of water a day to reduce the risk of kidney problems. Do not treat diarrhea with over the counter products. Contact your doctor if you have diarrhea that lasts more than 2 days or if it is severe and watery. This medicine can make you more sensitive to the sun. Keep out of the sun. If you cannot avoid being in the sun, wear protective clothing and use a sunscreen. Do not use sun lamps or tanning beds/booths. Cephalexin Monohydrate Oral tablet What is this medicine? CEPHALEXIN (sef a WILDER in) is a cephalosporin antibiotic. It is used to treat certain kinds of bacterial infections It will not work for colds, flu, or other viral infections. How should I use this medicine? Take this medicine by mouth with a full glass of water. Follow the directions on the prescription label. This medicine can be taken with or without food. Take your medicine at regular intervals. Do not take your medicine more often than directed. Take all of your medicine as directed even if you think you are better. Do not skip doses or stop your medicine early. Talk to your marketing manager regarding the use of this medicine in children. While this drug may be prescribed for selected conditions, precautions do apply. What side effects may I notice from receiving this medicine? Side effects that you should report to your doctor or health patient care secretary as soon as possible: allergic reactions like skin rash, itching or hives, swelling of the face, lips, or tongue breathing problems pain or trouble passing urine redness, blistering, peeling or loosening of the skin, including inside the mouth severe or watery diarrhea unusually weak or tired yellowing of the eyes, skin Side effects that usually do not require medical attention (report to your doctor or health patient care secretary if they continue or are bothersome): gas or heartburn genital or anal irritation headache joint or muscle pain nausea, vomiting What may interact with this medicine? probenecid some other antibiotics What if I miss a dose? If you miss a dose, take it as soon as you can. If it is almost time for your next dose, take only that dose. Do not take double or extra doses. There should be at least 4 to 6 hours between doses. Where should I keep my medicine? Keep out of the reach of children. Store at room temperature between 59 and 86 degrees F (15 and 30 degrees C). Throw away any unused medicine after the expiration date. What should I tell my health care provider before I take this medicine? They need to know if you have any of these conditions: kidney disease stomach or intestine problems, especially colitis an unusual or allergic reaction to cephalexin, other cephalosporins, penicillins, other antibiotics, medicines, foods, dyes or preservatives or trying to get breast-feeding What should I watch for while using this medicine? Tell your doctor or health patient care secretary if your symptoms do not begin to improve in a few days. Do not treat diarrhea with over the counter products. Contact your doctor if you have diarrhea that lasts more than 2 days or if it is severe and watery. If you have diabetes, you may get a false-positive result for sugar in your urine. Check with your doctor or health patient care secretary. You have been given the following additional information: Abscess, Incision And Drainage Cellulitis Sulfamethoxazole, Trimethoprim Oral tablet Cephalexin Monohydrate Oral tablet Do not work for four days until released. (Electronically signed by Will Cuadra MD 11/04/2016 20:53)
== END 2016-11-03 19:27 | disposition home or self-care (01) ==
LOC: ED SRH 10:36
DX: N49.2 Inflammatory disorders of scrotum (principal); B95.62 Methicillin resistant Staphylococcus aureus infection as the cause of diseases classified elsewhere
CPT/HCPCS: 83742; 90047; 90070; 90131; 90309; 90470; 91672; 95059

== ENCOUNTER 2016-11-05 09:41 | Emergency (ER) | payer SELFPAY ==
--- NOTE | 2016-11-05 09:59 | ED NURSING NOTES ---
Clinical Report - Nurses [facility] [address] [place] [address] 11/05/2016 9:42 Patient: MADINA AMARO TRIAGE Triage time 09:49. Acuity: LEVEL 4. Chief Complaint: RECHECK OF CELLULITIS. 09:56 11/05/16. Alert. No acute distress. SEPSIS SCREEN: Sepsis Screen. Negative (no infection suspected/documented). YOAN COMA SCORE: [place] Coma Scale: 15- eyes open spontaneously (4); best verbal response- oriented x 4 (5); best motor response- obeys commands (6). --09:56 Amy Chiang R.N. 09:53 11/05/16. BP: 152/96. HR: 86. RR: 14. O2 saturation: 97%. Temp: 97.6 F. Pain level now: 0/10. --09:56 Amy Chiang R.N. Weight: 83.9 kg. Height/Length: 66 inches. BMI: 29.9. --09:55 Amy Chiang R.N. Medications None. --09:54 Amy Chiang R.N. Allergies No Known Drug Allergy. --09:54 Amy Chiang R.N. History The patient has had no complaints since the treatment. Previous treatment: Previously seen in this ED two days ago. Incision and drainage of abscess performed. IV antibiotic given in ED. Prescription given and filled for antibiotic and pain med. Patient taking as prescribed. PAST MEDICAL HX: Tetanus status: up-to-date. Immunizations: up-to-date. SOCIAL HX: Light tobacco smoker- less than 1/2 a pack per day. Occasional alcohol use. No drug use. FALL RISK ASSESSMENT: Fall risk assessment completed. No fall risk identified. NUTRITIONAL RISK ASSESSMENT: The nutritional risk assessment revealed no deficiencies. FUNCTIONAL ASSESSMENT: Functional assessment: no impairments noted. LEARNING NEEDS ASSESSMENT: The learning needs assessment revealed no barriers. SKIN INTEGRITY ASSESSMENT: Skin integrity risk assessment completed. No skin integrity risk identified. --09:56 Amy Chiang R.N. Assessment The patient states feels better. --09:56 Amy Chiang R.N. Interventions ID band on patient. To treatment room. --09:56 Amy Chiang R.N. PHYSICAL ASSESSMENT 10:02 11/05/16. Ambulatory to room. GENERAL / NEURO / PSYCH: Alert. Oriented X 4. Appears in no acute distress. Patient's nutrition appears within normal limits. EXTREMITIES: Extremity pulses are within normal limits. Capillary refill is less than 2 seconds in the extremities. Sensation intact in extremities. ROM of extremities within normal limits. SKIN: Skin is warm and dry. Healing wound. No signs or symptoms of infection. Drainage. Swelling. --10:02 Amy Chiang R.N. DISPOSITION / DISCHARGE 10:11 11/05/16. No learning barriers present. Discharge instructions provided and reviewed with the patient and spouse. Treatments reviewed. Activity restrictions reviewed. Patient verbalized understanding. Written instructions provided in Omani. The patient was discharged by the physician. He was discharged home and accompanied by spouse. He left the Emergency Department ambulatory and via private vehicle. FALL RISK ASSESSMENT: Fall risk assessment completed. No fall risk identified. --10:11 Amy Chiang R.N. 10:10 11/05/16. BP: 154/92. HR: 75. RR: 15. O2 saturation: 100%. Temp: deferred. Pain level now: 0/10. --10:11 Amy Chiang R.N. Departure time: 10:11. --10:12 Amy Chiang R.N. Locked/Released at 11/05/2016 10:13 by Amy Chiang R.N.
--- NOTE | 2016-11-05 09:59 | ED CLINICAL REPORT ---
Clinical Report - Physicians/Mid Levels [facility] [address] [place] [address] 11/05/2016 9:42 Patient: MADINA AMARO Time Seen: 0940; initial patient contact. Arrived- By private vehicle. Historian- patient. HISTORY OF PRESENT ILLNESS Chief Complaint: BOIL. This started past several days and is still present but is improving. It was gradual in onset and has been constant but is not gone now. It is described as painful. It has been located in the perianal area (perennial). A cause has been identified (abscess). (no other symptoms. packing accidentally came out last night. no worsening pain, redness, or swelling. patient reports it feeling better.). Similar symptoms previously: None. Recent medical care: The patient was seen recently in the emergency department (had abx, wound drained, and packing). REVIEW OF SYSTEMS No fever, chills, difficulty breathing, nausea or vomiting. All systems otherwise negative, except as recorded above. PAST HISTORY See nurses notes. Tetanus immunization status is up-to-date. Medications: None. Allergies: No Known Drug Allergy. SOCIAL HISTORY Never smoker. No alcohol use or drug use. No recent travel. Is a local resident. FAMILY HISTORY Negative. ADDITIONAL NOTES The nursing notes have been reviewed. PHYSICAL EXAM Vital Signs: 11/05/2016 10:10 BP: 154/92. HR: 75. RR: 15. O2 saturation: 100%. Pain level now: 0/10. 11/05/2016 09:53 BP: 152/96. HR: 86. RR: 14. O2 saturation: 97%. Temp: 97.6 F. Pain level now: 0/10. Blood pressure normal. Oxygen saturation normal. Appearance: Alert. Oriented X3. No acute distress. CVS: Normal heart rate and rhythm. Heart sounds normal. Respiratory: No respiratory distress. Breath sounds normal. Chest nontender. Abdomen: Nontender. No organomegaly. Skin: Single small abscess (perennial. no signs of fornier's gangrene). PROGRESS AND PROCEDURES Course of Care: Patient here for wound check. No signs of worsening infection. Per history, patient improving. No systemic involvement. Patient non-toxic. No signs of fornier's gangrene or sepsis. Wound does not need to be repacked. discussed with patient workup, diagnosis, home care, andreturn precautions. All questions have been answered. The patient expressed understanding of these instructions and was agreeable to them. Wound redressed by nursing staff. Wound infection precautions provided. Disposition: Discharged. Condition: good. CLINICAL IMPRESSION 11/05/2016 09:53 BP: 152/96. HR: 86. RR: 14. O2 saturation: 97%. Temp: 97.6 F. Pain level now: 0/10. Hypertensive. Oxygen saturation normal. Essential hypertension. wound check of perineal abscess. INSTRUCTIONS Warnings: GENERAL WARNINGS: Return or contact your physician immediately if your condition worsens or changes unexpectedly, if not improving as expected, or if other problems arise. Specifically return if pain, vomiting, bleeding, breathing difficulty or fever. Your Current Medications: CONTINUE TAKING THE FOLLOWING MEDICATIONS: None*. OTC Medications: Motrin (available over the counter): take according to label instructions. Follow-up: Return to the emergency department as needed. Follow up with your doctor in three days if not better. Screening today revealed the patient's blood pressure to be in the normal range. The patient should follow up with a primary care provider for blood pressure management. Understanding of the discharge instructions verbalized by patient. Follow-up with: [facility], , , [address], , [place], [id number] Follow up in three if not better. Reason for referral: recheck today's concerns if you do not have a doctor. Summary of care provided to patient via paper. (Electronically signed by Tucker Madsen Dr. 11/05/2016 11:03)
--- NOTE | 2016-11-05 09:59 | ED NURSING NOTES ---
Clinical Report - Nurses [facility] [address] [place] [address] 11/05/2016 9:42 Patient: MADINA AMARO TRIAGE Triage time 09:49. Acuity: LEVEL 4. Chief Complaint: RECHECK OF CELLULITIS. 09:56 11/05/16. Alert. No acute distress. SEPSIS SCREEN: Sepsis Screen. Negative (no infection suspected/documented). YOAN COMA SCORE: [place] Coma Scale: 15- eyes open spontaneously (4); best verbal response- oriented x 4 (5); best motor response- obeys commands (6). --09:56 Amy Chiang R.N. 09:53 11/05/16. BP: 152/96. HR: 86. RR: 14. O2 saturation: 97%. Temp: 97.6 F. Pain level now: 0/10. --09:56 Amy Chiang R.N. Weight: 83.9 kg. Height/Length: 66 inches. BMI: 29.9. --09:55 Amy Chiang R.N. Medications None. --09:54 Amy Chiang R.N. Allergies No Known Drug Allergy. --09:54 Amy Chiang R.N. History The patient has had no complaints since the treatment. Previous treatment: Previously seen in this ED two days ago. Incision and drainage of abscess performed. IV antibiotic given in ED. Prescription given and filled for antibiotic and pain med. Patient taking as prescribed. PAST MEDICAL HX: Tetanus status: up-to-date. Immunizations: up-to-date. SOCIAL HX: Light tobacco smoker- less than 1/2 a pack per day. Occasional alcohol use. No drug use. FALL RISK ASSESSMENT: Fall risk assessment completed. No fall risk identified. NUTRITIONAL RISK ASSESSMENT: The nutritional risk assessment revealed no deficiencies. FUNCTIONAL ASSESSMENT: Functional assessment: no impairments noted. LEARNING NEEDS ASSESSMENT: The learning needs assessment revealed no barriers. SKIN INTEGRITY ASSESSMENT: Skin integrity risk assessment completed. No skin integrity risk identified. --09:56 Amy Chiang R.N. Assessment The patient states feels better. --09:56 Amy Chiang R.N. Interventions ID band on patient. To treatment room. --09:56 Amy Chiang R.N. PHYSICAL ASSESSMENT 10:02 11/05/16. Ambulatory to room. GENERAL / NEURO / PSYCH: Alert. Oriented X 4. Appears in no acute distress. Patient's nutrition appears within normal limits. EXTREMITIES: Extremity pulses are within normal limits. Capillary refill is less than 2 seconds in the extremities. Sensation intact in extremities. ROM of extremities within normal limits. SKIN: Skin is warm and dry. Healing wound. No signs or symptoms of infection. Drainage. Swelling. --10:02 Amy Chiang R.N. DISPOSITION / DISCHARGE 10:11 11/05/16. No learning barriers present. Discharge instructions provided and reviewed with the patient and spouse. Treatments reviewed. Activity restrictions reviewed. Patient verbalized understanding. Written instructions provided in British. The patient was discharged by the physician. He was discharged home and accompanied by spouse. He left the Emergency Department ambulatory and via private vehicle. FALL RISK ASSESSMENT: Fall risk assessment completed. No fall risk identified. --10:11 Amy Chiang R.N. 10:10 11/05/16. BP: 154/92. HR: 75. RR: 15. O2 saturation: 100%. Temp: deferred. Pain level now: 0/10. --10:11 Amy Chiang R.N. Departure time: 10:11. --10:12 Amy Chiang R.N. Locked/Released at 11/05/2016 10:13 by Amy Chiang R.N.
--- NOTE | 2016-11-05 09:59 | ED CLINICAL REPORT ---
Clinical Report - Physicians/Mid Levels [facility] [address] [place] [address] 11/05/2016 9:42 Patient: MADINA AMARO Time Seen: 0940; initial patient contact. Arrived- By private vehicle. Historian- patient. HISTORY OF PRESENT ILLNESS Chief Complaint: BOIL. This started past several days and is still present but is improving. It was gradual in onset and has been constant but is not gone now. It is described as painful. It has been located in the perianal area (perennial). A cause has been identified (abscess). (no other symptoms. packing accidentally came out last night. no worsening pain, redness, or swelling. patient reports it feeling better.). Similar symptoms previously: None. Recent medical care: The patient was seen recently in the emergency department (had abx, wound drained, and packing). REVIEW OF SYSTEMS No fever, chills, difficulty breathing, nausea or vomiting. All systems otherwise negative, except as recorded above. PAST HISTORY See nurses notes. Tetanus immunization status is up-to-date. Medications: None. Allergies: No Known Drug Allergy. SOCIAL HISTORY Never smoker. No alcohol use or drug use. No recent travel. Is a local resident. FAMILY HISTORY Negative. ADDITIONAL NOTES The nursing notes have been reviewed. PHYSICAL EXAM Vital Signs: 11/05/2016 10:10 BP: 154/92. HR: 75. RR: 15. O2 saturation: 100%. Pain level now: 0/10. 11/05/2016 09:53 BP: 152/96. HR: 86. RR: 14. O2 saturation: 97%. Temp: 97.6 F. Pain level now: 0/10. Blood pressure normal. Oxygen saturation normal. Appearance: Alert. Oriented X3. No acute distress. CVS: Normal heart rate and rhythm. Heart sounds normal. Respiratory: No respiratory distress. Breath sounds normal. Chest nontender. Abdomen: Nontender. No organomegaly. Skin: Single small abscess (perennial. no signs of fornier's gangrene). PROGRESS AND PROCEDURES Course of Care: Patient here for wound check. No signs of worsening infection. Per history, patient improving. No systemic involvement. Patient non-toxic. No signs of fornier's gangrene or sepsis. Wound does not need to be repacked. discussed with patient workup, diagnosis, home care, andreturn precautions. All questions have been answered. The patient expressed understanding of these instructions and was agreeable to them. Wound redressed by nursing staff. Wound infection precautions provided. Disposition: Discharged. Condition: good. CLINICAL IMPRESSION 11/05/2016 09:53 BP: 152/96. HR: 86. RR: 14. O2 saturation: 97%. Temp: 97.6 F. Pain level now: 0/10. Hypertensive. Oxygen saturation normal. Essential hypertension. wound check of perineal abscess. INSTRUCTIONS Warnings: GENERAL WARNINGS: Return or contact your physician immediately if your condition worsens or changes unexpectedly, if not improving as expected, or if other problems arise. Specifically return if pain, vomiting, bleeding, breathing difficulty or fever. Your Current Medications: CONTINUE TAKING THE FOLLOWING MEDICATIONS: None*. OTC Medications: Motrin (available over the counter): take according to label instructions. Follow-up: Return to the emergency department as needed. Follow up with your doctor in three days if not better. Screening today revealed the patient's blood pressure to be in the normal range. The patient should follow up with a primary care provider for blood pressure management. Understanding of the discharge instructions verbalized by patient. Follow-up with: [facility], , , [address], , [place], [id number] Follow up in three if not better. Reason for referral: recheck today's concerns if you do not have a doctor. Summary of care provided to patient via paper. (Electronically signed by Tucker Madsen Dr. 11/05/2016 11:03)
--- NOTE | 2016-11-05 11:04 | ED DISCHARGE INSTRUCTIONS ---
Patient: MADINA AMARO General Instructions [facility] VisitID: [id number] [address], [place] [address] 46y, M Registration Date/Time: 11/05/2016 11/05/2016 09:53 BP: 152/96. HR: 86. RR: 14. O2 saturation: 97%. Temp: 97.6 F. Pain level now: 0/10. Hypertensive. Oxygen saturation normal. Essential hypertension. wound check of perineal abscess. INSTRUCTIONS Warnings: GENERAL WARNINGS: Return or contact your physician immediately if your condition worsens or changes unexpectedly, if not improving as expected, or if other problems arise. Specifically return if pain, vomiting, bleeding, breathing difficulty or fever. Your Current Medications: CONTINUE TAKING THE FOLLOWING MEDICATIONS: None*. OTC Medications: Motrin (available over the counter): take according to label instructions. Follow-up: Return to the emergency department as needed. Follow up with your doctor in three days if not better. Screening today revealed the patient's blood pressure to be in the normal range. The patient should follow up with a primary care provider for blood pressure management. Understanding of the discharge instructions verbalized by patient. Follow-up with: [facility], , , [address], [place], [id number] Follow up in three if not better. Reason for referral: recheck today's concerns if you do not have a doctor. Summary of care provided to patient via paper. ADDITIONAL INFORMATION High Blood Pressure -- To Be Confirmed [No Tx] Your blood pressure was higher today than normal. Sometimes anxiety or pain can cause a temporary rise in blood pressure that later returns to normal. If your blood pressure is high on one measurement, this does not mean that you have hypertension (a chronic illness). However, you must have your blood pressure measured again within the next few days to find out if its still high. A normal blood pressure is 120/80 or less. The first (top) number is the "systolic" pressure. The second (bottom) number is the "diastolic" pressure. Hypertension exists when either the top number is 140 or higher, OR the bottom number is 90 or higher on repeated measurements. Blood pressure in the range of 120-140 (systolic) or 80-89 (diastolic) is considered "pre-hypertension". This means your are at risk for getting hypertension. You should have regular blood pressure checks to be sure your blood pressure is not rising. Home Care: Measure your blood pressure on 3 different days and write down the results. This can be done at your doctor's office or this facility. Some pharmacies and grocery stores offer automated blood pressure machines for your use. Follow Up: If your blood pressure is "high" (over 120/80) on 2 out of 3 days, you will need to follow up with your doctor for further evaluation and treatment. DO NOT PUT THIS OFF! Untreated high blood pressure increases the risk for heart attack, also known as acute myocardial infarction, or AMI, and stroke. It is a treatable condition. Get Prompt Medical Attention if any of the following occur: Chest pain or shortness of breath Severe headache Throbbing or rushing sound in the ears Nosebleed Sudden severe abdominal pain Extreme drowsiness, confusion or fainting Dizziness or vertigo (dizziness with spinning sensation) Weakness of an arm or leg or one side of the face Difficulty with speech or vision You have been given the following additional information: Hypertension, To Be Confirmed (Electronically signed by Tucker Madsen Dr. 11/05/2016 11:03)
--- NOTE | 2016-11-05 11:04 | ED DISCHARGE INSTRUCTIONS ---
Patient: MADINA AMARO General Instructions [facility] VisitID: [id number] [address], [place] [address] 46y, M Registration Date/Time: 11/05/2016 11/05/2016 09:53 BP: 152/96. HR: 86. RR: 14. O2 saturation: 97%. Temp: 97.6 F. Pain level now: 0/10. Hypertensive. Oxygen saturation normal. Essential hypertension. wound check of perineal abscess. INSTRUCTIONS Warnings: GENERAL WARNINGS: Return or contact your physician immediately if your condition worsens or changes unexpectedly, if not improving as expected, or if other problems arise. Specifically return if pain, vomiting, bleeding, breathing difficulty or fever. Your Current Medications: CONTINUE TAKING THE FOLLOWING MEDICATIONS: None*. OTC Medications: Motrin (available over the counter): take according to label instructions. Follow-up: Return to the emergency department as needed. Follow up with your doctor in three days if not better. Screening today revealed the patient's blood pressure to be in the normal range. The patient should follow up with a primary care provider for blood pressure management. Understanding of the discharge instructions verbalized by patient. Follow-up with: [facility], , , [address], [place], [id number] Follow up in three if not better. Reason for referral: recheck today's concerns if you do not have a doctor. Summary of care provided to patient via paper. ADDITIONAL INFORMATION High Blood Pressure -- To Be Confirmed [No Tx] Your blood pressure was higher today than normal. Sometimes anxiety or pain can cause a temporary rise in blood pressure that later returns to normal. If your blood pressure is high on one measurement, this does not mean that you have hypertension (a chronic illness). However, you must have your blood pressure measured again within the next few days to find out if its still high. A normal blood pressure is 120/80 or less. The first (top) number is the "systolic" pressure. The second (bottom) number is the "diastolic" pressure. Hypertension exists when either the top number is 140 or higher, OR the bottom number is 90 or higher on repeated measurements. Blood pressure in the range of 120-140 (systolic) or 80-89 (diastolic) is considered "pre-hypertension". This means your are at risk for getting hypertension. You should have regular blood pressure checks to be sure your blood pressure is not rising. Home Care: Measure your blood pressure on 3 different days and write down the results. This can be done at your doctor's office or this facility. Some pharmacies and grocery stores offer automated blood pressure machines for your use. Follow Up: If your blood pressure is "high" (over 120/80) on 2 out of 3 days, you will need to follow up with your doctor for further evaluation and treatment. DO NOT PUT THIS OFF! Untreated high blood pressure increases the risk for heart attack, also known as acute myocardial infarction, or AMI, and stroke. It is a treatable condition. Get Prompt Medical Attention if any of the following occur: Chest pain or shortness of breath Severe headache Throbbing or rushing sound in the ears Nosebleed Sudden severe abdominal pain Extreme drowsiness, confusion or fainting Dizziness or vertigo (dizziness with spinning sensation) Weakness of an arm or leg or one side of the face Difficulty with speech or vision You have been given the following additional information: Hypertension, To Be Confirmed (Electronically signed by Tucker Madsen Dr. 11/05/2016 11:03)
--- NOTE | 2016-11-05 11:04 | ED MAR SUMMARY ---
..... Medication Administration Record [facility] [address], [place] [id number] Patient: MADINA AMARO Visit ID: [id number] 46y, M Weight: 83.9 kg Height/Length: 66 in BMI: 29.9 ALLERGIES: No Known Drug Allergy
--- NOTE | 2016-11-05 11:04 | ED MAR SUMMARY ---
..... Medication Administration Record [facility] [address] [place], [place] [id number] Patient: MADINA AMARO Visit ID: [id number] 46y, M Weight: 83.9 kg Height/Length: 66 in BMI: 29.9 ALLERGIES: No Known Drug Allergy
--- NOTE | 2016-11-05 11:04 | ED MED RECONCILIATION SUMMARY ---
Patient: MADINA AMARO Medication Reconciliation Report [facility] VisitID: [id number] [address] [place] [address] 46y, M Registration Date/Time: 11/05/2016 Weight: 83.9 kg Height/Length: 66 in. BMI: 29.9 ALLERGIES: No Known Drug Allergy The patient's Home Medications are listed below: NONE. The source(s) of the original Home Medication information: Not obtained. The following Medications were given to the patient in the Emergency Department: None. The following Medications were prescribed to the patient: Motrin (available over the counter): take according to label instructions. -- Tucker Madsen Dr.
--- NOTE | 2016-11-05 11:04 | ED MED RECONCILIATION SUMMARY ---
Patient: MADINA AMARO Medication Reconciliation Report [facility] VisitID: [id number] [address] [place] [address] 46y, M Registration Date/Time: 11/05/2016 Weight: 83.9 kg Height/Length: 66 in. BMI: 29.9 ALLERGIES: No Known Drug Allergy The patient's Home Medications are listed below: NONE. The source(s) of the original Home Medication information: Not obtained. The following Medications were given to the patient in the Emergency Department: None. The following Medications were prescribed to the patient: Motrin (available over the counter): take according to label instructions. -- Tucker Madsen Dr.
== END 2016-11-05 10:11 | disposition home or self-care (01) ==
LOC: ED SRH 09:41
DX: K65.1 Peritoneal abscess (principal); I10 Essential (primary) hypertension